=== PATIENT | female | born 1980 | race Caucasian/White ===

== ENCOUNTER 2020-07-16 19:01 | Emergency (ER) | payer OTHER ==
[~2020-07-16] VITALS: Ht 157.5 cm; Wt 55.0 kg
--- NOTE | 2020-07-16 19:43 | NUR ---
cc of urinary retention. pt siting upright in gurney for comfort yelling and moaning out in pain. pt states she is 12 weeks . and son at bedside.
--- NOTE | 2020-07-16 19:44 | NUR ---
bladder scan >975 mls. erp aware
--- NOTE | 2020-07-16 19:44 | NUR ---
in and out cath >900 mls of clear yellow urine drained from bladder. white discharge noted around urethra. erp aware
--- NOTE | 2020-07-16 19:55 | NUR ---
pt reports relief after in and out cath. pt is calm and resting in gurney making jokes with family.
[2020-07-16 19:59] LABS: MICROSCOPIC NOT IND
--- NOTE | 2020-07-16 20:02 | NUR ---
pt able to void in toilet after drinking water
--- NOTE | 2020-07-16 20:02 | NUR ---
lab at bedside to draw labs
[2020-07-16 20:25] LABS: CLUE CELLS NONE SEEN (NONE SEEN); WET PREP WBCS FEW (FEW)
[2020-07-16 20:26] LABS: BASOPHILS % (AUTO) 1 % (0-1); EOSINOPHILS % (AUTO) 1 % (1-7); LYMPHOCYTES % (AUTO) 24 % (22-44); MEAN CORPUSCULAR HEMOGLOBIN 32.6 pg (27.0-34.8); MEAN CORPUSCULAR HGB CONC 34.5 g/dL (32.4-35.8); MEAN PLATELET VOLUME 7.4 fL (7.4-10.4); MONOCYTES % (AUTO) 4 % (2-9); NEUTROPHILS % (AUTO) 71 % (42-75); PLATELET COUNT 251 x10^3/uL (130-400); RED BLOOD COUNT 4.39 x10^6/uL (3.82-5.3); RED CELL DISTRIBUTION WIDTH 13.4 % (9.6-15.2)
[2020-07-16 20:30] LABS: MD NO
[2020-07-16] MEDS ORDERED: FLUCONAZOLE 100 MG TABLET PO ONE (20:30)
[2020-07-16 20:33] LABS: ALBUMIN 3.8 g/dL (3.4-5.0); ANION GAP 5 mmol/L (5-15); CALCIUM 9.1 mg/dL (8.5-10.1); CHLORIDE 107 mmol/L (98-107)
[2020-07-16 20:37] LABS: ALANINE AMINOTRANSFERASE 29 U/L (12-78); ALKALINE PHOSPHATASE 37 U/L (45-117); BILIRUBIN,TOTAL 0.3 mg/dL (0.2-1.0); CREATININE 0.66 mg/dL (0.55-1.02); TOTAL PROTEIN 7.4 g/dL (6.4-8.2)
[2020-07-16] MEDS ORDERED: FLUCONAZOLE 100 MG TABLET ONE (20:55)
[2020-07-16 21:20] VITALS: BP 109/65
== END 2020-07-16 21:22 | disposition home or self-care (01) ==
LOC: ED 21:01
DX: O46.91 Antepartum hemorrhage, unspecified, first trimester (principal); R33.9 Retention of urine, unspecified; R10.9 Unspecified abdominal pain; Z3A.12 12 weeks gestation of pregnancy
CPT/HCPCS: 36415; 80053; 81003; 85025; 87210; 87491; 87591; 87808; 99284